=== PATIENT | male | born 2005 | race Two or more races ===

== ENCOUNTER 2024-03-21 10:48 | Emergency (ER) | payer MEDICAID, SELFPAY ==
[2024-03-21 10:53] VITALS: BP 135/83; PULSE 80; RESP 18; TEMP 37.4; O2SAT 98; BMI 28.2
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
[2024-03-21] MEDS: KETOROLAC 15 MG/ML inj IVP (11:39)
[2024-03-21 11:44] LABS: Lactate* 0.9 mmol/L (0.5-1.9)
[2024-03-21 11:48] LABS: Basophils Absolute Auto 0.02 K/uL (0.00-0.30); Basophils Percent Auto 0.3 % (0.0-3.0); Eosinophils Absolute Auto 0.02 K/uL (0.00-0.50); Eosinophils Percent Auto 0.3 % (0.0-7.0); Hematocrit 45.4 % (37.0-53.0); Hemoglobin* 15.6 gm/dL (13.5-17.5); Immature Granulocytes Abs Auto 0.01 K/uL (0.00-0.30); Immature Granulocytes Pct Auto 0.1 %; Lymphocytes Absolute Auto 1.58 K/uL (0.90-2.90); Lymphocytes Percent Auto 20.2 % (20-44); Mean Corpuscular HGB Conc 34 gm/dL (32-36); Mean Corpuscular Hemoglobin 30 pg (26-34); Mean Corpuscular Volume 86 fL (80-100); Monocytes Percent Auto 6.4 % (0.0-11.0); Neutrophils Percent Auto 72.7 % (42.0-72.0); Platelet Count* 311 K/uL (140-440); RDW Coefficient of Variation % 12.4 % (11.5-15.5); Red Blood Count 5.28 m/uL (4.30-5.90); Slide Review Reflex No; White Blood Count* 7.83 K/uL (4.50-11.00)
[2024-03-21 12:08] LABS: Chloride* 107 mmol/L (96-114)
[2024-03-21 12:09] LABS: Albumin* 5.5 g/dL (3.3-5.0); Potassium* 4.1 mmol/L (3.6-5.1); Sodium* 143 mmol/L (135-149)
[2024-03-21 12:11] LABS: Anion Gap 10 mEq/L (7-15); Bilirubin Total* 0.8 mg/dL (0.1-1.5); Carbon Dioxide* 26 mmol/L (20-32); Creatinine* 0.8 mg/dL (0.5-1.5); Est. Creatinine Clearance* 132.92; Estimated Glomerular Filt Rate 130 ml/min; Total Protein* 8.9 g/dL (6.0-8.3)
[2024-03-21 12:12] LABS: Alanine Aminotransferase* 25 U/L (4-50); Alkaline Phosphatase* 60 U/L (40-150); Aspartate Amino Transferase* 27 U/L (12-35); Blood Urea Nitrogen* 9 mg/dL (5-24); Calcium* 9.8 mg/dL (8.4-10.6); Glucose* 95 mg/dL (60-115)
== END 2024-03-21 13:05 | disposition home or self-care (01) ==
PROVIDERS: Emergency Provider Emergency Medicine
DX: R07.9 Chest pain, unspecified (principal); R10.9 Unspecified abdominal pain; V49.3XXA Car occupant (driver) (passenger) injured in unspecified nontraffic accident, initial encounter
CPT/HCPCS: 36415; 71260; 74177; 80053; 83605; 85025; 96374; 99283; 99284; J1885; Q9967

== ENCOUNTER 2024-04-30 16:25 | Emergency (ER) | payer MEDICAID, SELFPAY ==
[2024-04-30 16:37] VITALS: BP 135/78; PULSE 74; RESP 18; TEMP 37.4; O2SAT 99; BMI 27.8
--- NOTE | 2024-04-30 17:25 | ED.GENADULT ---
HPI - General Adult General Chief complaint: Unspecified Complaint, Adult Stated complaint: Fentanyl w/d Time Seen by Provider: 04/30/24 16:53 History of Present Illness HPI narrative: This 18-year-old male comes in with his parents with concern about abuse of fentanyl. He wonders if he might have some withdrawal symptoms at times. He states that he is not having any symptoms currently and reports that his last use was 2 days ago. He states that he has not had feeling of anxiousness or diaphoresis. He has had sometimes when he has used fentanyl and a couple hours later took some food and had subsequent vomiting. He states that he has been using every day for the past month or so. He reports that he typically smokes that. He reports that there have been 3 or 4 occasions where he briefly lost consciousness after using fentanyl. He denies using any alcohol or other street drugs. He states that he does do some vaping but no other chemicals. He reports that he is interested in stopping and is interested in treatment options. Related Data Previous Rx's ?Medication ?Instructions ?Recorded ibuprofen 600 mg tablet 600 mg PO Q6H PRN #20 tabs 03/21/24 Allergies Allergy/AdvReac Type Severity Reaction Status Date / Time No Known Drug Allergies Allergy Verified 03/21/24 10:53 Review of Systems Status of ROS: Reports: 10 or more systems reviewed and unremarkable except as noted in History and below Narrative: Constitutional: No fevers, no weight gain or loss. Eyes: No discharge. No vision changes. HENT: No congestion, no sore throat, no ear pain. Cardiovascular: No chest pain, no palpitations. Respiratory: No shortness of breath, no wheezes, no cough. Gastrointestinal: No abdominal pain, no vomiting, no diarrhea. Genitourinary: No dysuria, no hematuria. Musculoskeletal: Normal range of motion. Skin: No rashes, no pruritis. Neurological: No dizziness, weakness, sensory change, speech change. Endo/Heme/Allergies: No bruising or bleeding. No polydipsia. Pysch: no suicidality, no anxiety, no insomnia. All other systems reviewed and are negative. PFS PFS Social History Smoking Status: Never smoker Do you use any of these nicotine containing products: E-Cigarettes and Vaping Products Second hand tobacco smoke exposure: No How often do you have a drink containing alcohol: never How often do you have six or more drinks on one occasion: Never AUDIT-C Alcohol total score: 0 Non-prescribed substance use: sedatives/tranquilizers and other Non-prescribed substance use details: [facility]: No Exam Narrative: Exam Narrative: Constitutional: Well-developed, well-nourished, no acute distress. HEENT: Normocephalic, atraumatic. Neck: Normal range of motion. Nontender. Supple. Heart: Regular. No murmurs. Normal rate. Intact distal pulses. Lungs: Clear to auscultation. No chest discomfort. No wheezes, rhonchi, or rales. Abdomen: Normal bowel sounds. Nontender. No rebound tenderness. Genitalia: Deferred. Back: No midline tenderness. Normal range of motion. Extremities: Normal range of motion. No injury. Skin: Intact. No rash. Warm. No erythema or pallor. Neurologic: No altered sensation. No weakness. Alert and oriented. Psychiatric: No suicidality. No anxiety or depression. No insomnia. Nursing notes and vitals signs are reviewed. Const: Vital Signs, click to edit/add: Vital Signs - 24 hr 04/30/24 16:37 Temperature 99.4 F Pulse Rate [Pulse Oximeter] 74 Respiratory Rate 18 Blood Pressure [Le ft Upper Arm] 135/78 Pulse Oximetry 99 Oxygen Delivery Me thod Room Air Course Vital Signs Vital signs: Initial Vital Signs Temperature 99.4 F 04/30/24 16:37 Temperature Source Temporal Artery Scan 04/30/24 16:37 Pulse Rate 74 04/30/24 16:37 Pulse Rhythm Regular 04/30/24 16:37 Respiratory Rate 18 04/30/24 16:37 Blood Pressure 135/78 04/30/24 16:37 Blood Pressure Mean 97 04/30/24 16:37 Blood Pressure Position Supine 04/30/24 16:37 Pulse Oximetry 99 04/30/24 16:37 Oxygen Delivery Method Room Air 04/30/24 16:37 Vital Signs Temperature 99.4 F 04/30/24 16:37 Pulse Rate 74 04/30/24 16:37 Respiratory Rate 18 04/30/24 16:37 Blood Pressure 135/78 04/30/24 16:37 Pulse Oximetry 99 04/30/24 16:37 Oxygen Delivery Method Room Air 04/30/24 16:37 Temperature 99.4 F 04/30/24 16:37 Pulse Rate 74 04/30/24 16:37 Respiratory Rate 18 04/30/24 16:37 Blood Pressure 135/78 04/30/24 16:37 Pulse Oximetry 99 04/30/24 16:37 Oxygen Delivery Method Room Air 04/30/24 16:37 Medical Decision Making MDM Narrative Medical decision making narrative: This patient comes in with some question whether he may be having some withdrawal symptoms. He states that he has been using fentanyl most every day over the past month or so. His last use was 3 days ago. He states that he is not having any symptoms currently. His only symptoms that he has had a few hours after using fentanyl with some vomiting after taking food. The patient denies using any other street drugs or alcohol. He is here with his parents. He is okay to be discharged home. He did receive information for inpatient and outpatient treatment options. I also provided a prescription for Zofran. He is encouraged to come back here if struggling with this issue in any way. I also explained the role of detox services which are not available in this community but would help him if he was having need for those services. Discharge Plan Discharge Clinical Impression: Opiate abuse, episodic Patient Disposition: Home w/ Parent or Adult Condition: Stable Additional Instructions: Use Zofran as needed and directed for nausea symptoms. Return if worsening. Recommended to and role in inpatient or outpatient program for treatment to discontinue use of fentanyl. Prescriptions: No Action ibuprofen 600 mg tablet 600 mg PO Q6H PRNQty: 20 0RF Follow Up/Referrals: Provider,Not a Local [Primary Care Provider] - Stand Alone Forms: [employer] Info Instructions
== END 2024-04-30 17:39 | disposition home or self-care (01) ==
PROVIDERS: Emergency Provider Emergency Medicine Emergency Medical Services
DX: F11.90 Opioid use, unspecified, uncomplicated (principal)
CPT/HCPCS: 99283; 99284